=== PATIENT | male | born 1925 | race Caucasian/White ===

== ENCOUNTER 2016-10-15 22:33 | Emergency (ER) | payer OTHER, MEDICARE ==
[2016-10-15 22:53] VITALS: TEMP 98.4
--- NOTE | 2016-10-15 23:01 | EDPHY ---
H & P Stated Complaint: RIGHT LOWER LEG SWOLLEN FELT LIKE PULLED SOMETHING Time Seen by Provider: 10/15/16 22:48 HPI/ROS: Chief Complaint: Right leg pain and swelling HPI: 89-year-old male with a history of bladder cancer in remission who started having pain in his right calf yesterday. He has noticed increased swelling when he is going to bed tonight. Does not have any recent travel or periods of immobility. No chest pain or shortness of breath. No fevers or chills. No cough. No numbness or weakness. Does not have a history of swelling in his legs before. Did have a quadriceps bleed in the past but this feels different. ROS: 10 point Review of Systems is negative except as noted in the HPI. PMH: Bladder cancer, in remission, hypertension, hyperlipidemia Medications: Or atorvastatin, hydrochlorothiazide, amlodipine, Flomax, Proscar Allergies: No known drug allergies Social History: No smoking, occasional alcohol, no recreational drug use Family History: non-contributory Physical Exam: Gen: Awake, Alert, No Distress HEENT: Nose: no rhinorrhea Eyes: PERRLA, EOMI Mouth: Moist mucosa Neck: Supple, no JVD Chest: nontender, lungs clear to auscultation Heart: S1, S2 normal, no murmur Abd: Soft, non-tender, no guarding Back: no CVA tenderness, no midline tenderness Ext: Right calf edema, is approximately 2.5 cm greater circumference than his left, positive tenderness and firmness of his right calf. 2+ DP and PT pulses. Capillary refills less than 2 seconds bilaterally Skin: no rash Neuro: CN II-XII intact, Sensation grossly intact, Strength 5/5 in bilateral upper and lower extremities - Personal History Current Tetanus/Diphtheria Vaccine: Yes Current Tetanus Diphtheria and Acellular Pertussis (TDAP): Yes - Medical/Surgical History Hx Asthma: No Hx Chronic Respiratory Disease: No Hx Diabetes: No Hx Cardiac Disease: No Hx Renal Disease: No Hx Cirrhosis: No Hx Alcoholism: No Hx HIV/AIDS: No Hx Splenectomy or Spleen Trauma: No Other PMH: HTN, HIGH CHOL, R HIP REPLACMENT, HERNIA REPAIR, BLADDER CA X4 OVER 40 YEARS - Social History Smoking Status: Former smoker Constitutional: Initial Vital Signs Temperature (C) 36.9 C 10/15/16 22:37 Heart Rate 78 10/15/16 22:37 Respiratory Rate 18 10/15/16 22:37 Blood Pressure 177/75 H 10/15/16 22:37 O2 Sat (%) 93 10/15/16 22:37 O2 Delivery Mode Room Air Allergies/Adverse Reactions: HAYFEVER Allergy (Mild, Uncoded 10/15/16 22:39) NASAL CONGESTION Home Medications: Medication Instructions Recorded Hydrochlorothiazide [HCTZ (*)] 12.5 mg PO DAILY 12/20/10 Acetaminophen [Tylenol 325mg (*)] 650 mg PO Q4 PRN #0 tab 12/19/13 Atorvastatin Calcium [Lipitor 20 20 mg PO DAILY 12/19/13 mg (*)] Amlodipine Besylate [Norvasc] 5 mg PO 10/15/16 Finasteride [Proscar 5 MG (*)] 5 mg PO DAILY 10/15/16 Tamsulosin HCl [Flomax] 0.4 mg PO 10/15/16 Medical Decision Making - Diagnostics Imaging Results: Imaging Impressions Extremity Venous Study 10/15/16 23:00 Impression: 1. No deep venous thrombosis in the right lower extremity. 2. Complex hypoechoic possible hematomas within the musculature medial aspect of the right knee as well as medial proximal calf on the right. However, in this patient with history of bladder cancer, consider possibility of metastatic disease. Continued follow-up suggested. If indicated, these areas could be aspirated at some point and/or biopsy if persistent. Findings discussed with William Landry MD at 0:05 hour, 10/16/2016. Imaging: Discussed imaging studies w/ call center specialist Radiologist ED Course/Re-evaluation: Right leg duplex ultrasound is negative for acute DVT. There are some evidence of hematomas in the calf. There is no history to suggest any kind of claudication. He has normal perfusion at this time. Will discharge with follow -up with his primary care physician in 3-4 days. Departure - Departure Disposition: Home, Routine, Self-Care Clinical Impression: Hematoma Condition: Good Instructions: Hematoma (ED) Additional Instructions: Follow up with primary care physician in 3-4 days for further evaluation. Return to the emergency depart for increasing leg pain, chest pain, shortness of breath, fevers, chills, or any other concerns. Referrals: Francisco Ng MD [Primary Care Provider] - As per Instructions
[2016-10-16 00:32] VITALS: BP 156/70; PULSE 73; RESP 16; O2SAT 95
== END 2016-10-16 00:31 | disposition home or self-care (01) ==
DX: M79.81 Nontraumatic hematoma of soft tissue (principal); I10 Essential (primary) hypertension; Z85.51 Personal history of malignant neoplasm of bladder; Z87.891 Personal history of nicotine dependence

== ENCOUNTER 2016-10-18 07:12 | Observation (INO) | payer OTHER, MEDICARE ==
[2016-10-18 07:43] LABS: COLOR YELLOW; LEUKOCYTE ESTERASE,URINE 3+ (NEGATIVE); NITRITE,URINE POSITIVE (NEGATIVE)
[2016-10-18 07:49] LABS: BACTERIA 2+ /hpf (NONE SEEN); WBC,URINE 50-182 /hpf (0-3)
--- NOTE | 2016-10-18 07:57 | EDPHY ---
H & P Time Seen by Provider: 10/18/16 07:30 HPI/ROS: Chief complaint. Fever and chills HPI. 89-year-old male presents emergency department with fever and chills that began about 4:00 a.m.. He awoke to shaking and chills. He took his temperature which was 100.5 degrees. No upper respiratory symptoms, cough, shortness of breath, chest discomfort. No sore throat. He did have a urinary tract infection 3 weeks ago that was treated with cephalexin and then follow up urinalysis was normal. He was seen in our emergency department on October 15 for right calf pain and swelling and had a negative ultrasound. He tells me that his calf is better. The patient does have a history of bladder cancer ROS Constitutional. Fever and chills Eyes. no problems with vision ENT. no sore throat, no nasal drainage Cardiovascular. no chest pain Respiratory. no shortness of breath, no cough Abdominal. no abdominal pain, no nausea/vomiting, no diarrhea . Possibly problem with urination MS. no calf pain/swelling, no neck/back pain, no joint pain Skin. no rash Lymph. no swollen glands Neuro. no headache, no dizziness, no difficulty walking or with speech Past Medical/Surgical History: Bladder cancer, hypertension, dyslipidemia, right hip replacement Social History: , non smoker, no alcohol Smoking Status: Former smoker Physical Exam: General Appearance: Alert well-developed male mild distress vital signs are stable. Temp 37 Eyes: Pupils equal and round no pallor or injection. ENT, Mouth: Mucous membranes are moist. Pharynx without injection Respiratory: There are no retractions, lungs are clear to auscultation. Cardiovascular: Regular rate and rhythm. Gastrointestinal: Abdomen is soft and nontender, no masses, bowel sounds normal. Neurological: Awake and alert, sensory and motor exams grossly normal. Skin: Warm and dry, no rashes. Musculoskeletal: Neck is supple nontender. Extremities symmetrical, full range of motion. Psychiatric: Patient is oriented X 3, there is no agitation. Constitutional: Initial Vital Signs Temperature (C) 37 C 10/18/16 07:16 Heart Rate 88 10/18/16 07:16 Respiratory Rate 18 10/18/16 07:16 Blood Pressure 165/90 H 10/18/16 07:16 O2 Sat (%) 93 10/18/16 07:16 O2 Delivery Mode Room Air Allergies/Adverse Reactions: HAYFEVER Allergy (Mild, Uncoded 10/18/16 07:14) NASAL CONGESTION Home Medications: Medication Instructions Recorded Hydrochlorothiazide [HCTZ (*)] 12.5 mg PO DAILY 12/20/10 Acetaminophen [Tylenol 325mg (*)] 650 mg PO Q4 PRN #0 tab 12/19/13 Atorvastatin Calcium [Lipitor 20 20 mg PO DAILY 12/19/13 mg (*)] Amlodipine Besylate [Norvasc] 2.5 mg PO DAILY 10/15/16 Finasteride [Proscar 5 MG (*)] 5 mg PO DAILY 10/15/16 Tamsulosin HCl [Flomax] 0.4 mg PO DAILY 10/15/16 Fluticasone Nasal [Flonase Nasal 2 spray EACHNARE HS 10/18/16 [place]] Herbals/Supplements -Info Only 1 tab PO DAILY 10/18/16 Naproxen Sodium [Aleve 220 MG (*)] 220 mg PO DAILY PRN 10/18/16 Medical Decision Making - Diagnostics Imaging Results: Imaging Impressions Chest X-Ray 10/18/16 07:58 Impression: 1. Mild prominent interstitial markings at the lung bases possibly from dependent interstitial edema/fluid overload. Interstitial infiltrate is felt to be less likely. 2. Progressive degenerative changes about the shoulders. Procedures: Septic workup including lactate and blood cultures. ED Course/Re-evaluation: Re-evaluation at 9:30 a.m.. Patient is stable. He is receiving IV Levaquin. The patient and I discussed treatment plan including recommendation for admission. We discussed laboratory evaluation. He expresses understanding And agreement I consulted and discussed the case with Dr. Moreno who agrees to the admission Differential Diagnosis: I considered urinary tract infection, sepsis, pneumonia. The patient was treated for urinary tract with cephalexin 3 weeks ago but now has recurrent UTI - Data Points Laboratory Results: Laboratory Results 10/18/16 07:45 10/18/16 07:45 10/18/16 10/18/16 10/18/16 07:45 07:45 07:45 WBC 10.20 10^3/uL H 10^3/uL (3.80-9.50) RBC 4.33 10^6/uL L 10^6/uL (4.40-6.38) Hgb 13.3 g/dL L g/dL (13.7-17.5) Hct 38.5 % L % (40.0-51.0) MCV 88.9 fL fL (81.5-99.8) MCH 30.7 pg pg (27.9-34.1) MCHC 34.5 g/dL g/dL (32.4-36.7) RDW 13.6 % % (11.5-15.2) Plt Count 166 10^3/uL 10^3/uL (150-400) MPV 9.2 fL fL (8.7-11.7) Neut % (Auto) 79.1 % H % (39.3-74.2) Lymph % (Auto) 11.0 % L % (15.0-45.0) [place] % (Auto) 6.9 % % (4.5-13.0) Eos % (Auto) 2.2 % % (0.6-7.6) Baso % (Auto) 0.4 % % (0.3-1.7) Nucleat RBC Rel Count 0.0 % % (0.0-0.2) Absolute Neuts (auto) 8.08 10^3/uL H 10^3/uL (1.70-6.50) Absolute Lymphs (auto) 1.12 10^3/uL 10^3/uL (1.00-3.00) Absolute Monos (auto) 0.70 10^3/uL 10^3/uL (0.30-0.80) Absolute Eos (auto) 0.22 10^3/uL 10^3/uL (0.03-0.40) Absolute Basos (auto) 0.04 10^3/uL 10^3/uL (0.02-0.10) Absolute Nucleated RBC 0.00 10^3/uL 10^3/uL (0-0.01) Immature Gran % 0.4 % % (0.0-1.1) Immature Gran # 0.04 10^3/uL 10^3/uL (0.00-0.10) PT 13.6 SEC SEC (12.0-15.0) INR 1.05 (0.83-1.16) APTT 29.6 SEC SEC (23.0-38.0) VBG Lactic Acid Sodium 137 mEq/L mEq/L (134-144) Potassium 4.5 mEq/L mEq/L (3.5-5.2) Chloride 100 mEq/L mEq/L (97-110) Carbon Dioxide 26 mEq/l mEq/l (22-31) Anion Gap 11 mEq/L mEq/L (8-16) BUN 19 mg/dL mg/dL (7-23) Creatinine 0.9 mg/dL mg/dL (0.7-1.3) Estimated GFR > 60 Glucose 116 mg/dL H mg/dL (70-100) Calcium 9.2 mg/dL mg/dL (8.5-10.4) Total Bilirubin 1.4 mg/dL mg/dL (0.1-1.4) Urine Color Urine Appearance Urine pH Ur Specific [place] Urine Protein Urine Ketones Urine Blood Urine Nitrate Urine Bilirubin Urine Urobilinogen Ur Leukocyte Esterase Urine RBC Urine WBC Ur Epithelial Cells Urine Bacteria Urine Glucose 10/18/16 10/18/16 07:45 07:30 WBC RBC Hgb Hct MCV MCH MCHC RDW Plt Count MPV Neut % (Auto) Lymph % (Auto) [place] % (Auto) Eos % (Auto) Baso % (Auto) Nucleat RBC Rel Count Absolute Neuts (auto) Absolute Lymphs (auto) Absolute Monos (auto) Absolute Eos (auto) Absolute Basos (auto) Absolute Nucleated RBC Immature Gran % Immature Gran # PT INR APTT VBG Lactic Acid 0.6 mmol/L L mmol/L (0.7-2.1) Sodium Potassium Chloride Carbon Dioxide Anion Gap BUN Creatinine Estimated GFR Glucose Calcium Total Bilirubin Urine Color YELLOW Urine Appearance MODERATELY TURBID Urine pH 7.0 (5.0-7.5) Ur Specific [place] 1.013 (1.002-1.030) Urine Protein 1+ H (NEGATIVE) Urine Ketones NEGATIVE (NEGATIVE) Urine Blood NEGATIVE (NEGATIVE) Urine Nitrate POSITIVE H (NEGATIVE) Urine Bilirubin NEGATIVE (NEGATIVE) Urine Urobilinogen NEGATIVE EU EU (0.2-1.0) Ur Leukocyte Esterase 3+ H (NEGATIVE) Urine RBC 3-5 /hpf H /hpf (0-3) Urine WBC 50-182 /hpf H /hpf (0-3) Ur Epithelial Cells NONE SEEN /lpf /lpf (NONE-1+) Urine Bacteria 2+ /hpf H /hpf (NONE SEEN) Urine Glucose NEGATIVE (NEGATIVE) Medications Given: Discontinued Medications Acetaminophen (Tylenol) 650 mg PO EDNOW ONE Stop: 10/18/16 10:09 Last Admin: 10/18/16 10:28 Dose: 650 mg Levofloxacin/Dextrose (Levaquin 750 Mg (Premix)) 150 mls @ 100 mls/hr IV EDNOW ONE PRN Reason: Protocol Stop: 10/18/16 09:29 Last Admin: 10/18/16 08:31 Dose: 150 mls Departure - Departure Disposition: [facility] Inpatient Acute Clinical Impression: Urinary tract infection Qualifiers: Urinary tract infection type: site unspecified Hematuria presence: without hematuria Qualified Code(s): N39.0 - Urinary tract infection, site not specified Condition: Fair
[2016-10-18 08:00] LABS: % IMMATURE GRANULYOCYTES 0.4 % (0.0-1.1); ABSOLUTE IMMATURE GRANULOCYTES 0.04 10^3/uL (0.00-0.10); ADD DIFF? NO; ADD MORPH? NO; ADD SCAN? NO; ATYPICAL LYMPHOCYTE FLAG 0 (0-99); FRAGMENT RBC FLAG 0 (0-99); HEMATOCRIT 38.5 % (40.0-51.0); HEMOGLOBIN 13.3 g/dL (13.7-17.5); LEFT SHIFT FLG 0 (0-99); LIPEMIA HEMOLYSIS FLAG 90 (0-99); MEAN CELL HEMOGLOBIN 30.7 pg (27.9-34.1); MEAN CELL HEMOGLOBIN CONCENTR. 34.5 g/dL (32.4-36.7); MEAN CELL VOLUME 88.9 fL (81.5-99.8); MEAN PLATELET VOLUME 9.2 fL (8.7-11.7); PLATELET CLUMPS FLAG 20 (0-99); PLATELET COUNT 166 10^3/uL (150-400); RED BLOOD CELL COUNT 4.33 10^6/uL (4.40-6.38); RED CELL DISTRIBUTION WIDTH 13.6 % (11.5-15.2)
[2016-10-18 08:07] LABS: INR 1.05 (0.83-1.16); PROTIME(PATIENT) 13.6 SEC (12.0-15.0)
[2016-10-18 08:08] LABS: APTT 29.6 SEC (23.0-38.0)
[2016-10-18 08:16] LABS: ANION GAP 11 mEq/L (8-16); BILIRUBIN,TOTAL 1.4 mg/dL (0.1-1.4); CALCIUM 9.2 mg/dL (8.5-10.4); CARBON DIOXIDE 26 mEq/l (22-31); CHLORIDE 100 mEq/L (97-110); CREATININE 0.9 mg/dL (0.7-1.3); GLOMERULAR FILTRATION RATE > 60; GLUCOSE 116 mg/dL (70-100); POTASSIUM 4.5 mEq/L (3.5-5.2); SODIUM 137 mEq/L (134-144)
[2016-10-18] MEDS ORDERED: ACETAMINOPHEN 500 MG TAB PO ONE (10:08)
--- NOTE | 2016-10-18 11:02 | PDGENHP ---
History and Physical - Chief Complaint Fever - History of Present Illness Mr. Piyush Huff is an 89 yo M w/ hx of bladder cancer in remission, HTN, and BPH presenting with one day of fever, chills, urgency, and malodorous urine. Of note, he was treated for cystitis 2/2 Klebsiella in August with a 7 day course of cephalexin. At that time, his symptoms were only fatigue and malodorous urine, which resolved after course of treatment. Additionally, he had a non-infectious UA after treatment. He was asymptomatic in the interim until the night prior to presentation. He denies increase of lower urinary tract symptoms, abdominal/back /perineal pain, and hematuria. History Information - Allergies/Home Medication List Allergies/Adverse Reactions: HAYFEVER Allergy (Mild, Uncoded 10/18/16 07:14) NASAL CONGESTION Home Medications: Hydrochlorothiazide [HCTZ (*)] 12.5 mg PO DAILY 12/20/10 [Last Taken 10/17/16] Atorvastatin Calcium [Lipitor 20 mg (*)] 20 mg PO DAILY 12/19/13 [Last Taken ] Amlodipine Besylate [Norvasc] 2.5 mg PO DAILY 10/15/16 [Last Taken 10/17/16] Finasteride [Proscar 5 MG (*)] 5 mg PO DAILY 10/15/16 [Last Taken 10/17/16] Tamsulosin HCl [Flomax] 0.4 mg PO DAILY 10/15/16 [Last Taken 10/17/16] Fluticasone Nasal [Flonase Nasal [place]] 2 spray EACHNARE HS 10/18/16 [Last Taken 10/17/16] Herbals/Supplements -Info Only 1 tab PO DAILY 10/18/16 [Last Taken 10/17/16] Naproxen Sodium [Aleve 220 MG (*)] 220 mg PO DAILY PRN 10/18/16 [Last Taken ] I have personally reviewed and updated: medical history, social history - Past Medical History hypertension Additional medical history: Bladder cancer, BPH - Surgical History Additional surgical history: Multiple cystoscopies (most recent July 2016), bladder mass resection - Family History Negative for: cancer - Social History Smoking Status: Former smoker Alcohol Use: None Drug Use: None Additional social history: Lives alone, manages all ADLs independently but has significant local help from extended family. Review of Systems Constitutional: Reports: chills, fever EENMT: Reports: no symptoms Cardiac: Reports: no symptoms Respiratory: Reports: no symptoms Gastrointestinal: Reports: no symptoms Genitourinary: Reports: frequency, urgency Muscolosketal: Reports: no symptoms Skin: Reports: no symptoms Neurological: Reports: no symptoms Hematologic/Lymphatic: Reports: no symptoms Immunologic/Allergy: Reports: no symptoms Physical Exam Temp Pulse Resp BP Pulse Ox 39.5 C H 85 18 165/68 H 90 L 10/18/16 08:56 10/18/16 08:56 10/18/16 08:56 10/18/16 08:56 10/18/16 08:56 Constitutional: no apparent distress, appears nourished, not in pain Eyes: PERRL, anicteric sclera, EOMI Cardiovascular: regular rate and rhythym, systolic murmur (2/6 RICKY @ LLSB), No edema Respiratory: no respiratory distress, no rales or rhonchi, clear to auscultation Gastrointestinal: normoactive bowel sounds, soft, non-tender abdomen, no palpable masses Genitourinary: no bladder fullness, no bladder tenderness Skin: warm, normal color, no rashes or abrasions, no fluctuance, no induration, No mottled Neurologic: AAOx3 Psychiatric: interacting appropriately Lab Data & Imaging Review 10/18/16 07:45 10/18/16 07:45 WBC 10.20 10^3/uL (3.80-9.50) H 10/18/16 07:45 RBC 4.33 10^6/uL (4.40-6.38) L 10/18/16 07:45 Hgb 13.3 g/dL (13.7-17.5) L 10/18/16 07:45 Hct 38.5 % (40.0-51.0) L 10/18/16 07:45 MCV 88.9 fL (81.5-99.8) 10/18/16 07:45 MCH 30.7 pg (27.9-34.1) 10/18/16 07:45 MCHC 34.5 g/dL (32.4-36.7) 10/18/16 07:45 RDW 13.6 % (11.5-15.2) 10/18/16 07:45 Plt Count 166 10^3/uL (150-400) 10/18/16 07:45 MPV 9.2 fL (8.7-11.7) 10/18/16 07:45 Neut % (Auto) 79.1 % (39.3-74.2) H 10/18/16 07:45 Lymph % (Auto) 11.0 % (15.0-45.0) L 10/18/16 07:45 [place] % (Auto) 6.9 % (4.5-13.0) 10/18/16 07:45 Eos % (Auto) 2.2 % (0.6-7.6) 10/18/16 07:45 Baso % (Auto) 0.4 % (0.3-1.7) 10/18/16 07:45 Nucleat RBC Rel Count 0.0 % (0.0-0.2) 10/18/16 07:45 Absolute Neuts (auto) 8.08 10^3/uL (1.70-6.50) H 10/18/16 07:45 Absolute Lymphs (auto) 1.12 10^3/uL (1.00-3.00) 10/18/16 07:45 Absolute Monos (auto) 0.70 10^3/uL (0.30-0.80) 10/18/16 07:45 Absolute Eos (auto) 0.22 10^3/uL (0.03-0.40) 10/18/16 07:45 Absolute Basos (auto) 0.04 10^3/uL (0.02-0.10) 10/18/16 07:45 Absolute Nucleated RBC 0.00 10^3/uL (0-0.01) 10/18/16 07:45 Immature Gran % 0.4 % (0.0-1.1) 10/18/16 07:45 Immature Gran # 0.04 10^3/uL (0.00-0.10) 10/18/16 07:45 PT 13.6 SEC (12.0-15.0) 10/18/16 07:45 INR 1.05 (0.83-1.16) 10/18/16 07:45 APTT 29.6 SEC (23.0-38.0) 10/18/16 07:45 VBG Lactic Acid 0.6 mmol/L (0.7-2.1) L 10/18/16 07:45 Sodium 137 mEq/L (134-144) 10/18/16 07:45 Potassium 4.5 mEq/L (3.5-5.2) 10/18/16 07:45 Chloride 100 mEq/L (97-110) 10/18/16 07:45 Carbon Dioxide 26 mEq/l (22-31) 10/18/16 07:45 Anion Gap 11 mEq/L (8-16) 10/18/16 07:45 BUN 19 mg/dL (7-23) 10/18/16 07:45 Creatinine 0.9 mg/dL (0.7-1.3) 10/18/16 07:45 Estimated GFR > 60 10/18/16 07:45 Glucose 116 mg/dL (70-100) H 10/18/16 07:45 Calcium 9.2 mg/dL (8.5-10.4) 10/18/16 07:45 Total Bilirubin 1.4 mg/dL (0.1-1.4) 10/18/16 07:45 Urine Color YELLOW 10/18/16 07:30 Urine Appearance MODERATELY TURBID 10/18/16 07:30 Urine pH 7.0 (5.0-7.5) 10/18/16 07:30 Ur Specific [place] 1.013 (1.002-1.030) 10/18/16 07:30 Urine Protein 1+ (NEGATIVE) H 10/18/16 07:30 Urine Ketones NEGATIVE (NEGATIVE) 10/18/16 07:30 Urine Blood NEGATIVE (NEGATIVE) 10/18/16 07:30 Urine Nitrate POSITIVE (NEGATIVE) H 10/18/16 07:30 Urine Bilirubin NEGATIVE (NEGATIVE) 10/18/16 07:30 Urine Urobilinogen NEGATIVE EU (0.2-1.0) 10/18/16 07:30 Ur Leukocyte Esterase 3+ (NEGATIVE) H 10/18/16 07:30 Urine RBC 3-5 /hpf (0-3) H 10/18/16 07:30 Urine WBC 50-182 /hpf (0-3) H 10/18/16 07:30 Ur Epithelial Cells NONE SEEN /lpf (NONE-1+) 10/18/16 07:30 Urine Bacteria 2+ /hpf (NONE SEEN) H 10/18/16 07:30 Urine Glucose NEGATIVE (NEGATIVE) 10/18/16 07:30 Visualized and Interpreted Chest x-ray results: Yes Chest X-Ray results: no infiltrate Assessment & Plan Assessment: Mr. Piyush Huff is an 89 yo M w/ hx of bladder CA in remission, HTN, and BPH presenting with fever and urinary symptoms and found to have UA c/w recurrent UTI. Plan: 1. Urinary tract infection - UA w/ +LE and +nitrites in the setting of urgency, frequency, and malodorous urine. No evidence of sepsis, 1/4 SIRS and 0/3 qSOFA on admission. Of note, treated for Klebsiella(Cefazolin sensitive) UTI in August with 7 day course of cephalexin, after which symptoms resolved. Unclear if recurrence represents inadequate treatment or manifestation of another underlying process. Patient does have history of bladder cancer, but cystoscopy in July by OP urologist revealed no evidence of recurrence. Other considerations include malignancy elsewhere along the tract or prostate involvement (he denies worsened LUTS). - S/p levofloxacin in ED, will continue CTX 1g qD - Blood and urine cultures ordered - Will not perform additional abdominal imaging at this time; would recommend CT A/P and prostate evaluation as an outpatient if infection were to recur again 2. Hx of bladder CA - Followed by Dr. Montalvo in [place] with last cystoscopy in July of 2016 showing no signs of recurrence. 3. HTN - Mildly hypertensive in the ED, will continue home amlodipine and HCTZ noting no sepsis physiology. 4. BPH - No obstruction or worsening of LUTS; continue home meds Code - Patient has advanced directive and would only desire resuscitative efforts if reversible cause found. Noting current infection, will make full code ; patient expressed understanding Ppx - LMWH Diet - Regular Dispo - Obs; suspect discharge tomorrow
[2016-10-18] MEDS ORDERED: ONDANSETRON DISINTEGRATING 4 MG TAB PO PRN (11:25)
[2016-10-18] MEDS ORDERED: ONDANSETRON 4 MG/2 ML VIAL IVP PRN (11:25)
[2016-10-18] MEDS: amLODIPine BESYLATE 5 MG TAB PO SCH (13:25)
[2016-10-18] MEDS: ATORVASTATIN CALCIUM 20 MG TAB PO SCH (13:25)
[2016-10-18] MEDS: FINASTERIDE 5 MG TAB PO SCH (13:25)
[2016-10-18] MEDS: HYDROCHLOROTHIAZIDE 12.5 MG CAP PO SCH (13:26)
[2016-10-18] MEDS: TAMSULOSIN HCL 0.4 MG CAP PO SCH (13:26)
[2016-10-18] MEDS: ACETAMINOPHEN 325 MG TAB PO PRN (20:57)
[2016-10-18] MEDS ORDERED: MELATONIN 3 MG TAB PO SCH (21:00)
[2016-10-18] MEDS ORDERED: FLUTICASONE NASAL 120 SPRAYS/16 GM MDI EACHNARE SCH (21:00)
[2016-10-19 05:06] LABS: % IMMATURE GRANULYOCYTES 0.6 % (0.0-1.1); ABSOLUTE IMMATURE GRANULOCYTES 0.08 10^3/uL (0.00-0.10); ADD DIFF? NO; ADD MORPH? NO; ADD SCAN? NO; ATYPICAL LYMPHOCYTE FLAG 0 (0-99); FRAGMENT RBC FLAG 0 (0-99); HEMATOCRIT 36.7 % (40.0-51.0); HEMOGLOBIN 12.6 g/dL (13.7-17.5); LEFT SHIFT FLG 0 (0-99); LIPEMIA HEMOLYSIS FLAG 90 (0-99); MEAN CELL HEMOGLOBIN 30.1 pg (27.9-34.1); MEAN CELL HEMOGLOBIN CONCENTR. 34.3 g/dL (32.4-36.7); MEAN CELL VOLUME 87.8 fL (81.5-99.8); MEAN PLATELET VOLUME 9.4 fL (8.7-11.7); PLATELET CLUMPS FLAG 0 (0-99); PLATELET COUNT 147 10^3/uL (150-400); RED BLOOD CELL COUNT 4.18 10^6/uL (4.40-6.38); RED CELL DISTRIBUTION WIDTH 13.5 % (11.5-15.2)
[2016-10-19 05:28] LABS: ANION GAP 8 mEq/L (8-16); CALCIUM 8.3 mg/dL (8.5-10.4); CARBON DIOXIDE 26 mEq/l (22-31); CHLORIDE 99 mEq/L (97-110); CREATININE 0.8 mg/dL (0.7-1.3); GLOMERULAR FILTRATION RATE > 60; GLUCOSE 123 mg/dL (70-100); POTASSIUM 3.4 mEq/L (3.5-5.2); SODIUM 133 mEq/L (134-144)
[2016-10-19 07:57] VITALS: BP 119/55; PULSE 72; RESP 16; TEMP 98.7; O2SAT 98
[2016-10-19] MEDS ORDERED: ENOXAPARIN 40 MG/0.4 ML SYR SC SCH (09:00)
[2016-10-19] MEDS: FINASTERIDE 5 MG TAB PO SCH (09:17)
[2016-10-19] MEDS: ATORVASTATIN CALCIUM 20 MG TAB PO SCH (09:17)
[2016-10-19] MEDS: amLODIPine BESYLATE 5 MG TAB PO SCH (09:17)
[2016-10-19] MEDS: HYDROCHLOROTHIAZIDE 12.5 MG CAP PO SCH (09:17)
[2016-10-19] MEDS: TAMSULOSIN HCL 0.4 MG CAP PO SCH (09:17)
[2016-10-19] MEDS: ACETAMINOPHEN 325 MG TAB PO PRN (09:20)
--- NOTE | 2016-10-19 16:21 | GDS ---
[f rep st] DISCHARGE SUMMARY DISCHARGE DIAGNOSES: 1. Urinary tract infection. 2. History of bladder cancer, in remission. 3. History of hypertension. 4. History of benign prostatic hypertrophy. HISTORY: This is an 89-year-old male who came in with a fever. HOSPITAL COURSE: The patient was admitted and was given antibiotics. He felt immediately better. His white count, however, has come up a little bit, but he was feeling so good the next day that we decided to let him go. We will follow up on cultures. He will be discharged on Ceftin. /[id number]/MODL
== END 2016-10-19 11:09 | disposition home or self-care (01) ==
LOC: INTOOBSV 09:29 → F3N 11:12
PROVIDERS: ADMIT Internal Medicine Pulmonary Disease; ATTEND Internal Medicine
DX: N39.0 Urinary tract infection, site not specified (principal); Z85.51 Personal history of malignant neoplasm of bladder; I10 Essential (primary) hypertension; N40.0 Benign prostatic hyperplasia without lower urinary tract symptoms; E78.5 Hyperlipidemia, unspecified; Z96.641 Presence of right artificial hip joint
CPT/HCPCS: 71010; G0378; J0696; J1956; 96365; J1650

== ENCOUNTER → 2016-10-27 | Outpatient (CLI) | payer OTHER, MEDICARE | LOC: FCPNEURO 23:27 | PROVIDERS: ATTEND Psychiatry & Neurology Sleep Medicine | DX: G47.33 Obstructive sleep apnea (adult) (pediatric) (principal); G47.39 Other sleep apnea ==

== ENCOUNTER → 2016-12-08 | Outpatient (CLI) | payer OTHER, MEDICARE | LOC: FCPNEURO 21:00 | PROVIDERS: ATTEND Psychiatry & Neurology Sleep Medicine | DX: G47.33 Obstructive sleep apnea (adult) (pediatric) (principal); G47.39 Other sleep apnea ==